=== PATIENT | female | born 1950 | race Hispanic/Latino ===

== ENCOUNTER 2017-08-01 13:38 | Outpatient (CLI) | payer BC | END 2017-08-01 13:39 | disposition home or self-care (01) | LOC: BICRAD 13:38 | PROVIDERS: ATTEND Internal Medicine | DX: M25.562 Pain in left knee (principal); M25.552 Pain in left hip ==

== ENCOUNTER 2018-01-20 14:00 | Outpatient (CLI) | payer BC | END 2018-01-20 14:01 | disposition home or self-care (01) | LOC: BICMAMMO 14:00 | PROVIDERS: ATTEND Internal Medicine | DX: Z12.31 Encounter for screening mammogram for malignant neoplasm of breast (principal); R92.1 Mammographic calcification found on diagnostic imaging of breast | CPT/HCPCS: 77063; 77067 ==

== ENCOUNTER 2018-02-13 13:24 | Emergency (ER) | payer BC ==
[~2018-02-13 13:24] MED LIST: ISOVUE-370 76%-LOCM 1 ML ONE
[2018-02-13 14:06] LABS: #Basophils 0.1 thou/uL (0.0-0.2); #Eosinphils 0.4 thou/uL (0.0-0.7); #Lymphocytes 1.7 thou/uL (1.20-3.40); #Monocytes 0.3 thou/uL (0.11-0.59); #Neutrophils 5.1 thou/uL (1.40-6.50); %Basophils 0.8 % (0.0-1.0); %Eosinophils 4.7 % (0.0-10.0); %Lymphocytes 22.9 % (21.0-51.0); %Monocytes 4.3 % (0.0-10.0); %Neutrophils 67.3 % (42.0-75.0); Hemoglobin 14.6 g/dL (12.0-16.0); Mean Corpuscular Hemoglobin 32.9 pg (27.0-31.0); Mean Corpuscular Volume 91.4 fL (78.0-98.0); Mean Platelet Volume 9.9 fL (7.4-10.4); Platelet Count 86 thou/uL (130-400); RBC Distribution Width 12.5 % (11.5-14.5); Red Blood Cell (RBC) Count 4.44 mill/uL (4.20-5.40); White Blood Cell (WBC) Count 7.6 thou/uL (4.8-10.8)
[2018-02-13 14:25] LABS: ALT (SGPT) 18 U/L (8-55); AST (SGOT) 18 U/L (5-34); Albumin 4.8 g/dL (3.4-4.8); Alkaline Phosphatase 69 U/L (40-150); Anion Gap 12 mmol/L (10-20); BUN (Urea Nitrogen) 12 mg/dL (9.8-20.1); Bilirubin, Total 0.8 mg/dL (0.2-1.2); Calc. Creatinine Clearance 0 mL/min (70-130); Calcium 9.7 mg/dL (7.8-10.44); Carbon Dioxide 23 mmol/L (23-31); Chloride 108 mmol/L (98-107); Estimated GFR-MDRD 84; Globulin 2.7 g/dL (2.4-3.5); Glucose 154 mg/dL (80-115); Lipase 16 U/L (8-78); Potassium 3.6 mmol/L (3.5-5.1); Protein, Total 7.5 g/dL (6.0-8.3); Sodium 139 mmol/L (136-145)
[2018-02-13 15:22] LABS: Bilirubin Negative (Negative); Blood, Urine Negative (Negative); Clarity CLEAR (Clear); Glucose, Urine (Dipstick) >=1000 mg/dL (Negative); Leukocyte Negative (Negative); Nitrite Negative (Negative); Protein, Urine (Dipstick) Negative (Neg-Trace); Specific Gravity, Urine 1.044 (1.002-1.036); Urobilinogen 0.2 mg/dL (0.2-1.0)
[2018-02-13] MEDS ORDERED: Ondansetron HCl/PF 4 MG/2 ML Vial ONE (16:13)
--- NOTE | 2018-02-13 17:17 | CT ---
CT ABDOMEN AND PELVIS WITH IV CONTRAST: Date: 02/13/18 INDICATION: Right-sided abdominal pain for 1-2 weeks, with nausea, vomiting, and diarrhea. FINDINGS: Lung bases are clear. Gallbladder is surgically absent. Pancreas and adrenal glands are normal appearing. Spleen is of normal size. The kidneys are normal ap pearing. There is a normal appendix in the right lower quadrant. The bladder, rectum, and perirectal soft tiss ues are unremarkable. There is a mild amount of retained stool within the left hemicolon and transverse colon. Small bowel is of normal caliber. No free fluid is evident. There is diffuse osteopenia. There is scattered degenerative and osteoarthritic change. IMPRESSION: No CT explanation for the patient's right-sided abdominal pain. POS: HARLEEN
== END 2018-02-13 18:17 | disposition home or self-care (01) ==
LOC: ERS 13:24
DX: R10.31 Right lower quadrant pain (principal); R10.11 Right upper quadrant pain; R11.2 Nausea with vomiting, unspecified; E11.9 Type 2 diabetes mellitus without complications
CPT/HCPCS: 36415; 74177; 80053; 81003; 83690; 85025; 87086; 96361; 96374; J2405

== ENCOUNTER 2019-01-28 08:34 | Outpatient (CLI) | payer MEDICARE, BC ==
--- NOTE | 2019-02-02 06:44 | MMO ---
Bilateral MAMMO Bilat Screen [facility]. CLINICAL HISTORY: Patient is 68 years old and is seen for screening. The patient has no family history of breast cancer. The patient has no personal history of cancer. VIEWS: The views performed were: bilateral craniocaudal with tomosynthesis and bilateral mediolateral oblique with tomosynthesis. FILMS COMPARED: The present examination has been compared to prior imaging studies performed at [facility] on 11/17/2014, 12/01/2015, 01/03/2017 and 01/20/2018. MAMMOGRAM FINDINGS: The breasts are heterogeneously dense, which could obscure a lesion on mammography. There are benign appearing calcifications seen in both breasts. There are no suspicious masses, suspicious calcifications, or new areas of architectural distortion. IMPRESSION: THERE IS NO MAMMOGRAPHIC EVIDENCE OF MALIGNANCY. A ROUTINE FOLLOW-UP MAMMOGRAM IN 1 YEAR IS RECOMMENDED. THE RESULTS OF THIS EXAM WERE SENT TO THE PATIENT. ACR BI-RADS Category 2 - Benign finding MAMMOGRAPHY NOTE: 1. A negative mammogram report should not delay a biopsy if a dominant of clinically suspicious mass is present. 2. Approximately 10% to 15% of breast cancers are not detected by mammography. 3. Adenosis and dense breasts may obscure an underlying neoplasm. Reported by: MAO NAVARRO MD Electonically Signed: [id number]
== END 2019-01-28 08:35 | disposition home or self-care (01) ==
LOC: BICMAMMO 08:34
PROVIDERS: ATTEND Internal Medicine
DX: Z12.31 Encounter for screening mammogram for malignant neoplasm of breast (principal)
CPT/HCPCS: 77063; 77067

== ENCOUNTER 2019-08-04 12:12 | Outpatient (CLI) | payer BC ==
--- NOTE | 2019-08-04 13:57 | RAD ---
LEFT RIBS THREE VIEWS: 08/04/19 HISTORY: Rib pain. The bones are diffusely demineralized. I do not see any signs of fracture. No lytic or blastic bony c hange is seen. IMPRESSION: No evidence of fracture. POS: TPC
== END 2019-08-04 12:13 | disposition home or self-care (01) ==
LOC: BICRAD 12:12
PROVIDERS: ATTEND Internal Medicine
DX: R07.81 Pleurodynia (principal)

== ENCOUNTER 2020-03-13 09:29 | Outpatient (CLI) | payer BC ==
--- NOTE | 2020-03-13 09:52 | RAD ---
Exam:2 views left HISTORY: Pain. COMPARISON: None FINDINGS: Contour of the femoral head is maintained. No fracture. Hip joint spaces preserved. Visuali zed bony pelvis and sacrum are intact. IMPRESSION: No fracture. No significant degenerative change.
== END 2020-03-13 09:30 | disposition home or self-care (01) ==
LOC: BICRAD 09:29
PROVIDERS: ATTEND Family Medicine
DX: M25.552 Pain in left hip (principal)

== ENCOUNTER 2020-03-24 07:26 | Outpatient (CLI) | payer BC ==
--- NOTE | 2020-03-24 09:10 | CT ---
CT OF BRAIN PERFORMED WITHOUT CONTRAST ENHANCEMENT: Date: 03/24/2020 HISTORY: Right temporal headache, balance issues for months. FINDINGS: The ventricular and cisternal system shows some generalized mild atrophy. There are no signs of intra cerebral hemorrhage or extra-axial fluid collections. Mastoid air cells and visualized sinuses are cl ear. IMPRESSION: No acute intracranial abnormalities. POS: MICHELLE
== END 2020-03-24 07:27 | disposition home or self-care (01) ==
LOC: BICCT 07:26
PROVIDERS: ATTEND Family Medicine
DX: R42 Dizziness and giddiness (principal)
CPT/HCPCS: 70450

== ENCOUNTER 2020-08-30 13:20 | Emergency (ER) | payer BC ==
[2020-08-30] MEDS ORDERED: Meclizine HCl 25 MG TAB ONE (15:42)
== END 2020-08-30 16:57 | disposition home or self-care (01) ==
LOC: ERS 13:20
DX: S00.01XA Abrasion of scalp, initial encounter (principal); R55 Syncope and collapse; E11.9 Type 2 diabetes mellitus without complications; Z79.4 Long term (current) use of insulin; W22.8XXA Striking against or struck by other objects, initial encounter
CPT/HCPCS: 36415; 70450; 71045; 72125; 80053; 84484; 85025; 93005; 94760

== ENCOUNTER 2021-07-24 07:38 | Outpatient (CLI) | payer BC | END 2021-07-24 07:39 | disposition home or self-care (01) | LOC: ULT 07:38 | PROVIDERS: ATTEND Family Medicine | DX: R74.8 Abnormal levels of other serum enzymes (principal); R93.2 Abnormal findings on diagnostic imaging of liver and biliary tract; K76.0 Fatty (change of) liver, not elsewhere classified | CPT/HCPCS: 76700 ==

== ENCOUNTER 2021-11-29 07:34 | Day surgery (SDC) | payer BC ==
[2021-11-29 07:53] LABS: #Eosinphils 0.1 thou/uL (0.0-0.7); #Lymphocytes 0.8 thou/uL (1.20-3.40); #Monocytes 0.3 thou/uL (0.11-0.59); #Neutrophils 3.4 thou/uL (1.40-6.50); %Basophils 0.8 % (0.0-1.0); %Eosinophils 2.2 % (0.0-10.0); %Lymphocytes 17.4 % (21.0-51.0); %Monocytes 6.7 % (0.0-10.0); %Neutrophils 72.8 % (42.0-75.0); Hemoglobin 14.1 g/dL (12.0-16.0); Mean Corpuscular HGB CONC 34.7 g/dL (32.0-36.0); Mean Corpuscular Hemoglobin 34.1 pg (27.0-31.0); Mean Corpuscular Volume 98.1 fL (78.0-98.0); Platelet Count 83 thou/uL (130-400); RBC Distribution Width 11.5 % (11.5-14.5); Red Blood Cell (RBC) Count 4.15 mill/uL (4.20-5.40); White Blood Cell (WBC) Count 4.7 thou/uL (4.8-10.8)
[2021-11-29 08:01] LABS: INR-International Normal Ratio 1.2; Prothrombin Time 15.2 sec (12.0-14.7)
[2021-11-29 08:02] LABS: PTT 27.5 sec (22.9-36.1)
[2021-11-29] MEDS ORDERED: Lidocaine 1% PF 5 ML VIAL ONE (09:02)
[2021-11-29] MEDS ORDERED: Sodium Bicarbonate 2.5 MEQ/5 ML VIAL ONE (09:02)
[2021-11-29 13:13] VITALS: BP 118/69; TEMP 99.2
== END 2021-11-29 10:45 | disposition home or self-care (01) ==
LOC: ULT 07:34
PROVIDERS: ATTEND Physician Assistant Medical
PROC: 0FB23ZX Excision of Left Lobe Liver, Percutaneous Approach, Diagnostic (ICD-10-PCS; principal; 2021-11-29)
DX: K76.0 Fatty (change of) liver, not elsewhere classified (principal); R79.89 Other specified abnormal findings of blood chemistry; E11.9 Type 2 diabetes mellitus without complications; E78.00 Pure hypercholesterolemia, unspecified; Z79.4 Long term (current) use of insulin; Z79.899 Other long term (current) drug therapy; Z88.5 Allergy status to narcotic agent
CPT/HCPCS: 36415; 47000; 76942; 85025; 85610; 85730; 88307; 88313

== ENCOUNTER 2022-01-18 07:54 | Outpatient (CLI) | payer BC | END 2022-01-18 07:55 | disposition home or self-care (01) | LOC: BICMAMMO 07:54 | PROVIDERS: ATTEND Family Medicine | DX: Z12.31 Encounter for screening mammogram for malignant neoplasm of breast (principal) | CPT/HCPCS: 77063; 77067 ==

== ENCOUNTER 2024-04-06 11:18 | Outpatient (CLI) | payer MEDICARE, BC | END 2024-04-06 11:19 | disposition home or self-care (01) | LOC: BICMAMMO 11:18 | PROVIDERS: ATTEND Family Medicine | DX: Z12.31 Encounter for screening mammogram for malignant neoplasm of breast (principal) | CPT/HCPCS: 77063; 77067 ==